=== PATIENT | male | born 1950 | race Hispanic/Latino ===

== ENCOUNTER 2023-03-27 15:54 | Outpatient (CLI) | payer OTHER, MEDICAID ==
[2023-03-27 16:41] LABS: Hematocrit 49.6 % (38.8-50.0); Hemoglobin 17.4 g/dL (13.5-17.5); Mean Corpuscular HGB CONC 35.1 g/dL (32.0-36.0); Mean Corpuscular Volume 94.1 fl (81.2-95.1); Mean Platelet Volume 10.9 fl (7.4-10.4); Platelet Count 155 10x3/uL (150-450); RBC Distribution Width 13.3 % (11.5-14.5); Red Blood Cell (RBC) Count 5.27 10x6/uL (4.32-5.72); White Blood Cell (WBC) Count 8.3 10x3/uL (3.5-10.5)
[2023-03-27 16:53] LABS: INR-International Normal Ratio 1.1; Prothrombin Time 12.1 sec (9.5-12.1)
[2023-03-27 16:57] LABS: Anion Gap 17 mmol/L (10-20); BUN (Urea Nitrogen) 12 mg/dL (8.4-25.7); Calc. Creatinine Clearance 0 mL/min (70-130); Calcium 8.8 mg/dL (7.8-10.44); Carbon Dioxide 21 mmol/L (23-31); Chloride 111 mmol/L (98-107); Estimated GFR 69; Glucose 101 mg/dL (83-110); Potassium 4.1 mmol/L (3.5-5.1); Sodium 145 mmol/L (136-145)
== END 2023-03-27 15:55 | disposition home or self-care (01) ==
LOC: CSHLAB 15:54
PROVIDERS: ATTEND Specialist
DX: Z01.818 Encounter for other preprocedural examination (principal); K42.9 Umbilical hernia without obstruction or gangrene
CPT/HCPCS: 80048; 85027; 85610; 93005; 93010

== ENCOUNTER 2023-03-28 08:18 | Inpatient (IN) | payer OTHER, MEDICAID ==
[2023-03-28] MEDS ORDERED: Phenylephrine 40 MG/NS 250 ML 250 ML ONE (08:36)
[2023-03-28] MEDS ORDERED: Ascorbic Acid 500 mg Chewable Tablet ONE (08:40)
[2023-03-28] MEDS ORDERED: Aspirin 325 MG TAB ONE (08:41)
[2023-03-28] MEDS ORDERED: Heparin 10,000 UNITS/ 10 ML VIAL ONE ×2 (10:14→11:18)
[2023-03-28] MEDS ORDERED: PHENYLEPHRINE-NS 100 MCG/ML 10 ML SYRINGE ONE (10:14)
[2023-03-28] MEDS ORDERED: Lidocaine 1% (PF) 30 ML VIAL ONE (10:14)
[2023-03-28] MEDS ORDERED: fentaNYL 50 mcg/mL 1 mL Vial ONE (10:15)
[2023-03-28] MEDS ORDERED: Atropine Sulfate 1 mg/1 ml Vial ONE (10:15)
[2023-03-28] MEDS ORDERED: Midazolam HCl 2 mg/2 ml Vial ONE (10:15)
[2023-03-28] MEDS ORDERED: Nitroglycerin 50 MG/250 ML BOT 0 ML ONE (10:16)
[2023-03-29] MEDS ORDERED: Iopamidol 300 61% 100 ML VIAL FS ONE (15:18)
== END 2023-03-28 15:35 | disposition short-term general hospital (02) | DRG 37 ==
LOC: CSHCCL 08:18 → CSHIMCU 11:50 → CSHTELE 15:08
PROVIDERS: ADMIT Specialist; ATTEND Specialist
PROC: 037L3ZZ Dilation of Left Internal Carotid Artery, Percutaneous Approach (ICD-10-PCS; principal; 2023-03-28)
PROC: B3101ZZ Fluoroscopy of Thoracic Aorta using Low Osmolar Contrast (ICD-10-PCS; 2023-03-28)
PROC: B3121ZZ Fluoroscopy of Left Subclavian Artery using Low Osmolar Contrast (ICD-10-PCS; 2023-03-28)
PROC: B3141ZZ Fluoroscopy of Left Common Carotid Artery using Low Osmolar Contrast (ICD-10-PCS; 2023-03-28)
DX: I65.23 Occlusion and stenosis of bilateral carotid arteries (principal); I77.71 Dissection of carotid artery; I77.2 Rupture of artery; I10 Essential (primary) hypertension; E11.9 Type 2 diabetes mellitus without complications; I25.118 Atherosclerotic heart disease of native coronary artery with other forms of angina pectoris; I48.0 Paroxysmal atrial fibrillation; E78.2 Mixed hyperlipidemia; Z98.890 Other specified postprocedural states; Z88.3 Allergy status to other anti-infective agents; Z82.49 Family history of ischemic heart disease and other diseases of the circulatory system; Z80.3 Family history of malignant neoplasm of breast; Z87.891 Personal history of nicotine dependence; Z86.73 Personal history of transient ischemic attack (TIA), and cerebral infarction without residual deficits
CPT/HCPCS: 36215; 36222; 36225; 36228; 37215; 37246; 75710; 85347; 99152; 99153; C1725; C1760; C1769; C1876; C1884; C1894; J0461; J1644; J2001; J2250; J3010; Q9967